=== PATIENT | female | born 1990 | race Caucasian/White ===

== ENCOUNTER 2017-12-16 09:35 | Inpatient (IN) | payer MEDICAID ==
[2017-12-16 10:08] VITALS: BMI 29.9
[2017-12-16] MEDS ORDERED: Oxytocin 30 UNITS in Sodium Chloride 0.9% 500 ML IV SCH (11:15)
[2017-12-16] MEDS ORDERED: Lactated Ringer's 1,000 ML IV SCH (11:15)
[2017-12-16] MEDS: Lactated Ringer's 1,000 ML IV SCH ×2 (11:35→12:38)
[2017-12-16 11:49] LABS: BASO % 0.6 % (0.0-2.0); EOS % 0.4 % (0.0-4.0); HEMOGLOBIN 11.1 g/dL (12.0-16.0); LYMPH # 1.4 K/uL (1.0-4.3); LYMPH % 17.4 % (20.0-40.0); MEAN CELL VOLUME 84.7 fl (81.0-99.0); MEAN CORPUSCULAR HEMOGLOBIN 28.1 pg (27.0-31.0); MEAN CORPUSCULAR HGB CONC 33.1 g/dL (33.0-37.0); MEAN PLATELET VOLUME 7.3 fl (7.2-11.7); MONO # 0.4 K/uL (0.0-0.8); MONO % 4.3 % (0.0-10.0); NEUT # 6.4 K/uL (1.8-7.0); NEUT % 77.3 % (50.0-75.0); NRBC % 0.1 % (0.0-0.0); RBC 3.96 Mil/uL (3.80-5.20); RED CELL DISTRIBUTION WIDTH 15.1 % (11.5-14.5); WHITE BLOOD COUNT 8.3 K/uL (4.8-10.8)
[2017-12-16] MEDS ORDERED: Bupivacaine HCl 0.25% PF (10 ml) Inj ONE (12:44)
[2017-12-16] MEDS ORDERED: Fentanyl/Bupivacaine HCl 250 ML EPI ONE (12:49)
--- NOTE | 2017-12-16 17:10 | OBADHP ---
Datetime: 12/16/2017 10:28 Admit Comment, IP Provider: 27 y/o with IUP 38.6wks (SAY 12/24) presents to [facility] with complaint s of regular contractions since 7am, now q5-6min. Denies vb, lof, dysuria, headache, cp, sob, le belinda a.+FM Last visit, was told she was 4cm dilate, as per patient PNC: Dr. Nayak, GBS negative, denies abnormal u/s OBHx: 1 prior , full term, 7lb, no compliations PMHX: denies PSurgx: Breast augmentation Meds: PNV Alllergies: NKDA Vitals wnl General: Seen lying in bed, comfortable, occasional discomffort during ctx Cardio: RRR, no murmurs Pulm: CTABL Abdomen: Gravid, NT Extremities: No LE edema Pelvic Exam: 3cm, 100% effaced, -1 FHR: 144, reactive, no decels [place]: Ctx q 5-6min Assessment: IUP at 38/4 weeks Plan: (Annotations: Data stored by CPN on behalf of user) Pelvic Type - PN: Adequate Extremities - PN: Normal Abdomen - PN: Normal Back - PN: Normal Breast - PN: Normal Lungs - PN: Normal Heart - PN: Normal Thyroid - PN: Normal Neurologic - PN: Normal HEENT - PN: Normal General - PN: Normal Presentation-Admit: Vertex FHR - Baseline A Provider: 130 Gestation - Est Wks by US: 38+ Vital Signs Provider: Reviewed; Within Normal Limits IP Chief Complaint: Uterine contractions NICHD Variability Prov Fetus A: Moderate 6-25bpm NICHD Accel Fetus A IP Provider: 10X10 FHR Category Provider Fetus A: Category I NICHD Decel Fetus A IP Provider: None Dilatation, Provider: 3 Effacement, Provider: 80% Station, Provider: -1 Genitourinary Exam: Normal DTRs - PN: Normal EGA AdmitDate IP: 38.6 IP Adm Impression: Term, intrauterine IP Admit Plan: Admit to unit; Initiate labor augmentation protocol
--- NOTE | 2017-12-16 17:16 | OBDS ---
DELIVERY PERSONNEL Delivery Doctor: Bala Nayak MD Truck Engine Technician: Kit Kendal RN MATERNAL INFORMATION Delivery Anesthesia: Epidural Medications in Delivery: pitocin Estimated Blood Loss (ml): 250ml Maternal Complications: None Provider Comments: delivery of live baby boy 9/9 clear fluid cord with 3 vessels placent intac t and perineum intact LABOR SUMMARY EDC: 12/24/2017 00:00 No. Babies in Womb: 1 Attempted: No Labor Anesthesia: Epidural LABOR INFORMATION Reason for Induction: Not Applicable Onset of Labor: 12/16/2017 07:00 Complete Dilatation: 12/16/2017 16:20 Oxytocin: Augmentation Group B Beta Strep: Negative Antibiotics # of Doses: none Steroids Given: None Reason Steroids Not Administered: Not Applicable MEMBRANES Membranes Rupture Method: Spontaneous Rupture of Membranes: 12/16/2017 15:20 Amniotic Fluid Color: Clear Amniotic Fluid Amount: Small STAGES OF LABOR Stage 1 hrs: 9 Stage 1 min: 20 VAGINAL DELIVERY Episiotomy: None Laceration Extension: N/A Laceration Type: None Laceration Repair Note: none Count Comment: correct CSECTION DELIVERY Primary Indication: N/A CSection Urgency: N/A CSection Incidence: N/A Labor: N/A Elective: N/A BABY A INFORMATION Method of Delivery: Vaginal Born in Route : No : N/A Forceps: N/A Vacuum Extraction: N/A Shoulder Dystocia : No PRESENTATION/POSITION BABY A Presentation: Cephalic Cephalic Presentation: Vertex INFORMATION BABY A Gestational Age at Delivery: 38+6 Gestational Status: Term Outcome : Liveborn IDENTIFICATION/MEDS BABY A ID Band Number: [id number] ID Band Location: Left Leg; Left Arm
[2017-12-16] MEDS ORDERED: Oxycodone/Acetaminophen 5/325 mg Tab PO PRN ×3 (17:20→19:52)
[2017-12-16] MEDS: Oxycodone/Acetaminophen 5/325 mg Tab PO PRN (21:29)
[2017-12-17] MEDS: Oxycodone/Acetaminophen 5/325 mg Tab PO PRN ×3 (02:31→12:29)
[2017-12-17 07:29] LABS: BASO % 0.3 % (0.0-2.0); EOS # 0.1 K/uL (0.0-0.7); EOS % 1.3 % (0.0-4.0); HEMOGLOBIN 10.2 g/dL (12.0-16.0); LYMPH # 2.8 K/uL (1.0-4.3); LYMPH % 24.5 % (20.0-40.0); MEAN CELL VOLUME 85.5 fl (81.0-99.0); MEAN CORPUSCULAR HEMOGLOBIN 27.6 pg (27.0-31.0); MEAN CORPUSCULAR HGB CONC 32.3 g/dL (33.0-37.0); MEAN PLATELET VOLUME 7.4 fl (7.2-11.7); MONO # 0.7 K/uL (0.0-0.8); MONO % 6.3 % (0.0-10.0); NEUT # 7.8 K/uL (1.8-7.0); NEUT % 67.6 % (50.0-75.0); RBC 3.7 Mil/uL (3.80-5.20); RED CELL DISTRIBUTION WIDTH 15.3 % (11.5-14.5); WHITE BLOOD COUNT 11.5 K/uL (4.8-10.8)
--- NOTE | 2017-12-17 12:42 | OBPPN ---
Datetime: 12/17/2017 12:39 PP Pain Prov: Within normal limits PP Pain Prov comment: No SOB, chest or leg pains PP Nausea Prov: Denies PP Flatus Prov: Yes PP Nausea Prov comment: voiding well PP Breasts Prov: Normal PP Lungs Prov: Normal PP Abdomen/Uterus Prov: Abnormal PP Lochia Prov: Normal PP CVA Tenderness Prov: Normal PP Extremities Prov: Normal PP C/S Incision Prov: Not Applicable PP Progress Prov: Normal PP Comments Phys Exam Prov: breast not engorged, abd soft nd, fundus firm berlow the umb NT, ext no calf tenderness PP Impression Prov: Normal progression PP Plan Prov: Continue present management PP Progress Note Prov: OOB and continue PP care IP PP Procedures: None Vital Signs Provider PP: Reviewed
[2017-12-18] MEDS: Oxycodone/Acetaminophen 5/325 mg Tab PO PRN ×2 (02:39→13:48)
--- NOTE | 2017-12-18 12:44 | OBPPN ---
Datetime: 12/18/2017 12:42 PP Pain Prov: Within normal limits PP Nausea Prov: Denies PP Flatus Prov: Yes PP Breasts Prov: Normal PP Heart Prov: Normal PP Lungs Prov: Normal PP Abdomen/Uterus Prov: Normal PP Lochia Prov: Normal PP Vulva/Perineum Prov: Normal PP CVA Tenderness Prov: Normal PP Extremities Prov: Normal PP Comments Phys Exam Prov: fundus firm under umbilicus PP Impression Prov: Normal progression PP Plan Prov: Discharge PP Progress Note Prov: patient denies CP, no SOB, no N/V, tolerating PO diet, ambulating/voiding wel l, mild lochia, abdominal pain tolerable with meds A/P PPD #2 1. discharge pt home 2. Discharge instructions reviewed IP PP Procedures: None
--- NOTE | 2017-12-18 12:46 | OBDCSUM ---
Datetime: 12/18/2017 12:43 Discharged to, Provider: Home Follow up at, Provider: OB Disch Instr Activity: Normal activity Disch Instr Diet: Regular Discharge Instructions, Provider: Routine instructions given Discharge Diagnosis, Provider: Term Delivered Discharge Time: 12/18/2017 12:44 Follow up in weeks, Provider: 6 wks Disch Referrals: None Contraception discussed, Prov: Yes
--- NOTE | 2017-12-18 13:23 | NBCIR ---
Datetime: 12/16/2017 10:03 Preformed by:: Dr. Fernando Circumcision Request: Yes Consent Signed: Verbal Consent Obtained; Written Consent Signed and on Chart Position: Papoose Board Circumcision Time Out: Correct Patient Identity; Correct Side and Site are Marked Site Prep: Povidine Iodine; Sterile Drape Circumcision Date/Time: 12/18/2017 13:21 Block/Anesthestics: 1 Percent Lidocaine; Ring Block Equipment Used: Fliplifemco Clamp Bernardo Size: 1.3 Systemic Medications: None Complications: None Status: Excellent Cosmetic Outcome; Tolerated Procedure Well Parents Present: None Procedure Note: Pt tolerated procedure well Datetime: 12/16/2017 09:35 PT-NAME: DAYO DAY
[2017-12-19 01:02] VITALS: BP 101/78; PULSE 80; RESP 20; TEMP 98.5; O2SAT 100
== END 2017-12-18 16:43 | disposition home or self-care (01) | DRG 373 ==
LOC: H.EROB2 09:35 → H.L&D 11:10 → H.OB/GYN 20:45
PROVIDERS: ADMIT Specialist; ATTEND Specialist
PROC: 10E0XZZ Delivery of Products of Conception, External Approach (ICD-10-PCS; principal; 2017-12-16)
PROC: 4A1HXCZ Monitoring of Products of Conception, Cardiac Rate, External Approach (ICD-10-PCS; 2017-12-16)
DX: O80 Encounter for full-term uncomplicated delivery (principal); Z37.0 Single live birth; Z3A.38 38 weeks gestation of pregnancy